=== PATIENT | male | born 1965 | race Caucasian/White ===

== ENCOUNTER → 2019-02-26 | Outpatient (CLI) | payer MEDICAID ==
--- NOTE | 2019-02-26 10:49 | RADIOLOGY REPORT (SQ) ---
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 TECHNIQUE: Static and realtime lea scale imaging of the scrotum and testes. Selected color Doppler and spectral images recorded to document blood flow. LIMITATIONS: None. FINDINGS: RIGHT: TESTICLE: Normal size. Normal echotexture. Normal blood flow. No mass. EPIDIDYMIS: Not visualized due to overlying septated cyst. HYDROCELE OR VARICOCELE: No. HERNIA OR EXTRA-TESTICULAR MASS: There is a multi-septated 6.6 x 6.1 x 3.1 cm cyst superior to the ri ght testicle. This may represent complex hydrocele. Differential also includes epididymal cyst. No flow is demonstrated. OTHER: No other significant finding. LEFT: TESTICLE: Normal size. Normal echotexture. Normal blood flow. No mass. EPIDIDYMIS: Normal other than a small epididymal cyst. HYDROCELE OR VARICOCELE: No. HERNIA OR EXTRA-TESTICULAR MASS: No. OTHER: No other significant finding. IMPRESSION: Septated 6.6 x 6.1 x 3.1 cm cyst is superior to the right testicle. This most likely re presents septated hydrocele. Has there been prior epididymitis or orchitis? Posttraumatic hydrocele is also a possibility. Epididymal cyst is unlikely due to the large size. TECHNICAL DOCUMENTATION: JOB ID: [id number] [employer] All Rights Reserved Reading location - IP/workstation name: [email or web address]
== END ==
LOC: RAD 07:46
PROVIDERS: ATTEND Urology
DX: N50.9 Disorder of male genital organs, unspecified (principal)
CPT/HCPCS: 76870